=== PATIENT | female | born 1960 | race Native Hawaiian/Other Pacific Islander ===

== ENCOUNTER 2019-05-21 20:03 | Observation (INO) | payer OTHER ==
[~2019-05-21] VITALS: Ht 162.6 cm; Wt 90.0 kg
[2019-05-21 20:36] LABS: BASOPHILS ABSOLUTE AUTO 0.05 K/mm3 (0.00-0.23); BASOPHILS PERCENT AUTO 1 % (0-2); EOSINOPHILS ABSOLUTE AUTO 0.36 K/mm3 (0.00-0.68); EOSINOPHILS PERCENT AUTO 5 % (0-6); Hematocrit 41.4 % (33.0-51.0); IMMATURE GRAN ABSOLUTE AUTO 0.01 K/mm3 (0.00-0.10); IMMATURE GRAN PERCENT AUTO 0 % (0-1); LYMPHOCYTES ABSOLUTE AUTO 1.65 K/mm3 (0.84-5.20); LYMPHOCYTES PERCENT AUTO 25 % (21-46); MONOCYTES ABSOLUTE AUTO 0.42 K/mm3 (0.16-1.47); MONOCYTES PERCENT AUTO 6 % (4-13); Mean Corpuscular HGB 28.3 pg (26.0-34.0); Mean Corpuscular HGB Conc 31.4 g/dL (31.5-36.5); Mean Corpuscular Volume 90 fL (80-100); Mean Platelet Volume 9.1 fL (9.1-12.4); NEUTROPHILS ABSOLUTE AUTO 4.19 K/mm3 (1.96-9.15); NEUTROPHILS PERCENT AUTO 63 % (41-73); Platelet Count 326 K/mm3 (150-400); RDW Standard Deviation 49.6 fL (35.1-46.3); Red Blood Cell Count 4.59 M/mm3 (3.80-5.20); White Blood Cell Count 6.68 K/mm3 (4.00-11.30)
[2019-05-21 20:56] LABS: Alanine Aminotransfer (ALT/SGP 66 U/L (12-78); Albumin, Blood 3.6 g/dL (3.4-5.0); Albumin/Globulin Ratio 0.9 (0.8-1.8); Alk Phos 292 U/L (50-136); Anion Gap 6 mmol/L (6-16); Aspartate Aminotrans (AST/SGOT 49 U/L (12-37); Bilirubin, Total 0.2 mg/dL (0.1-1.0); Blood Urea Nitrogen 17 mg/dL (8-24); Bun/Creatinine Ratio 22.3 (12.0-20.0); CO2, Blood 23 mmol/L (21-32); Chloride, Blood 112 mmol/L (98-108); Creatinine, Blood 0.76 mg/dL (0.40-1.00); Globulin, Blood 4.2 g/dL (2.2-4.0); Glomerular Filtration Rate >60 (60-); Glucose, Blood 112 mg/dL (70-99); Potassium, Blood 3.9 mmol/L (3.5-5.5); Sodium, Blood 141 mmol/L (136-145); Total Protein, Blood 7.8 g/dL (6.4-8.2); Troponin I <0.015 ng/mL (0.000-0.040)
[2019-05-21] MEDS ORDERED: Protonix40 MG PO (23:55)
[2019-05-21] MEDS ORDERED: NITR.4SL SL (23:55)
[2019-05-21] MEDS ORDERED: Isosorbide Dini30 MG PO (23:55)
[2019-05-21] MEDS ORDERED: Prinivil5 MG PO (23:56)
[2019-05-21] MEDS ORDERED: ATOR40TA PO (23:56)
[2019-05-21] MEDS ORDERED: METOPROLOL SUCC25 MG PO (23:56)
[2019-05-21] MEDS ORDERED: Spironolactone25 MG PO (23:56)
--- NOTE | 2019-05-22 00:50 | NUR ---
REPORT RECIEVED FROM WELFARE VISITOR AT 0045 AND AWAITING PT T/F TO ROOM 344.
[2019-05-22] MEDS ORDERED: ASPI81CH PO (04:08)
--- NOTE | 2019-05-22 04:43 | NUR ---
T/F AND SUMMARY: PT T/F TO ROOM 344 AT 0100 VIA W/C. SHE USED TOILET INDEPENDENTLY, WAS OBSERVED STABLE ON FEET AND T/F'D SELF TO BED. PT IS A/OX4, WAS ORIENTED TO ROOM AND CALL SYSTEM AND IS ABLE TO SPECIFY NEEDS. SHE'S DENIED CP, NAUSEA, SOB, DYSPNEA, AND ALL OTHER S/S CARDIAC DISTRESS SINCE ARRIVAL TO FLOOR. SHE IS AWARE TO ALERT STAFF IF SHE BECOMES SYMPTOMATIC. PT PLACED ON TELEMETRY AND IS S.AJAY/NSR AND 50'S-60'S BPM. SHE ADMITTED THAT CP PRIOR TO ADMISSION WAS SHARP TO L.RIBS/CHEST, RADIATED TO STERNUM AND LASTED APPROX 1 MINUTE THEN RESOLVED SPONTANEOUSLY. SHE HAD NO ACCOMPANYING SYMPTOMS AND HASN'T EXPERIENCED ANY OF THIS SINCE HOME. PT HAD PA W/STENT PLACEMENT IN 2007 AND HAS SCAR TO L.LATERAL CW FROM PM/DEFIB PLACEMENT IN JANUARY 2019. SHE HAS NO OTHER SKIN ISSUES. SHE'S DENIED DIZZINESS/LIGHTHEADEDNESS BUT AGREED TO CALL STAFF IF THIS DEVELOPS. IV TO R.W IS SL. SCD'S INTACT. PT TOOK HOME MEDS PRIOR TO ARRIVAL TO ER SO THEY WEREN'T REQUIRED THIS SHIFT. NO ACUTE CHANGES, VSS/AFEBRILE. PT WILL NEED PCP AND FIRE PREVENTION CAPTAIN D/T RECENTLY MOVING TO AREA, WILL ENSURE DAY STAFF ARE AWARE. THOMAS AND REPORT TO DAY RN.
--- NOTE | 2019-05-22 11:33 | NUR ---
DISCHARGE DISCHARGE INSTRUCTIONS, MEDICATION LIST AND FOLLOW UP APPOINTMENT REVIEWED WITH PT. QUESTIONS/CONCERNS ANSWERED. PT VERBALLY INDICATED UNDERSTANDING OF ALL INSTRUCTIONS RECEIVED. TELE BOX REMOVED AND RETURNED TO PCU. ESCORTED OUT BY RN.
== END 2019-05-22 11:24 | disposition home or self-care (01) ==
LOC: ER 20:03 → MEDS 20:04 → ENPENDDIS 05-22 10:11 → MEDS 05-22 11:24
PROVIDERS: Physician Assistant; ADMIT Hospitalist
DX: R07.89 Other chest pain (principal); I25.10 Atherosclerotic heart disease of native coronary artery without angina pectoris; I11.0 Hypertensive heart disease with heart failure; I50.22 Chronic systolic (congestive) heart failure; K21.9 Gastro-esophageal reflux disease without esophagitis; E78.5 Hyperlipidemia, unspecified; E66.01 Morbid (severe) obesity due to excess calories; Z68.34 Body mass index [BMI] 34.0-34.9, adult; Z88.5 Allergy status to narcotic agent; Z88.8 Allergy status to other drugs, medicaments and biological substances; Z79.899 Other long term (current) drug therapy; Z95.0 Presence of cardiac pacemaker; Z79.82 Long term (current) use of aspirin
CPT/HCPCS: 36415; 71046; 80053; 83690; 84484; 85025; 93005; 93010; 99285-25; G0378

== ENCOUNTER 2019-10-18 21:03 | Emergency (ER) | payer OTHER ==
[~2019-10-18] VITALS: Ht 162.6 cm; Wt 85.7 kg
[~2019-10-18 21:03] MED LIST: ASPI81CH PO; ATOR40TA PO; Isosorbide Dini30 MG PO; METOPROLOL SUCC25 MG PO; NITR.4SL SL; Prinivil5 MG PO; Protonix40 MG PO; Spironolactone25 MG PO
[2019-10-18 22:18] LABS: BASOPHILS ABSOLUTE AUTO 0.05 K/mm3 (0.00-0.23); BASOPHILS PERCENT AUTO 1 % (0-2); EOSINOPHILS ABSOLUTE AUTO 0.24 K/mm3 (0.00-0.68); EOSINOPHILS PERCENT AUTO 3 % (0-6); Hematocrit 40.8 % (33.0-51.0); Hemoglobin 13.1 g/dL (11.5-16.0); IMMATURE GRAN ABSOLUTE AUTO 0.01 K/mm3 (0.00-0.10); IMMATURE GRAN PERCENT AUTO 0 % (0-1); LYMPHOCYTES ABSOLUTE AUTO 1.95 K/mm3 (0.84-5.20); LYMPHOCYTES PERCENT AUTO 27 % (21-46); MONOCYTES ABSOLUTE AUTO 0.65 K/mm3 (0.16-1.47); MONOCYTES PERCENT AUTO 9 % (4-13); Mean Corpuscular HGB 28.5 pg (26.0-34.0); Mean Corpuscular HGB Conc 32.1 g/dL (31.5-36.5); Mean Corpuscular Volume 89 fL (80-100); Mean Platelet Volume 9.4 fL (9.1-12.4); NEUTROPHILS ABSOLUTE AUTO 4.46 K/mm3 (1.96-9.15); NEUTROPHILS PERCENT AUTO 61 % (41-73); Platelet Count 329 K/mm3 (150-400); RDW Coefficient Variation 15.4 % (11.7-14.2); RDW Standard Deviation 50.4 fL (35.1-46.3); White Blood Cell Count 7.36 K/mm3 (4.00-11.30)
[2019-10-18 22:40] LABS: Alanine Aminotransfer (ALT/SGP 367 U/L (12-78); Albumin, Blood 3.6 g/dL (3.4-5.0); Albumin/Globulin Ratio 0.8 (0.8-1.8); Alk Phos 335 U/L (50-136); Anion Gap 5 mmol/L (6-16); Aspartate Aminotrans (AST/SGOT 248 U/L (12-37); Bilirubin, Total 0.3 mg/dL (0.1-1.0); Blood Urea Nitrogen 22 mg/dL (8-24); Bun/Creatinine Ratio 27.1 (12.0-20.0); CO2, Blood 26 mmol/L (21-32); Calcium, Blood 8.8 mg/dL (8.5-10.1); Chloride, Blood 112 mmol/L (98-108); Creatinine, Blood 0.81 mg/dL (0.40-1.00); Globulin, Blood 4.7 g/dL (2.2-4.0); Glomerular Filtration Rate >60 (60-); Glucose, Blood 92 mg/dL (70-99); Potassium, Blood 4.1 mmol/L (3.5-5.5); Sodium, Blood 143 mmol/L (136-145); Total Protein, Blood 8.3 g/dL (6.4-8.2); Troponin I <0.015 ng/mL (0.000-0.040)
== END 2019-10-19 03:27 | disposition home or self-care (01) ==
LOC: ER 21:03
PROVIDERS: Physician Assistant
DX: R07.89 Other chest pain (principal); I25.2 Old myocardial infarction; I11.0 Hypertensive heart disease with heart failure; I50.22 Chronic systolic (congestive) heart failure; F17.210 Nicotine dependence, cigarettes, uncomplicated; Z79.899 Other long term (current) drug therapy
CPT/HCPCS: 36415; 71046; 80053; 84484; 85025; 93005; 93010; 99284-25

== ENCOUNTER 2020-05-06 09:20 | Emergency (ER) | payer OTHER ==
[~2020-05-06] VITALS: Ht 160 cm; Wt 91.2 kg
[2020-05-06 10:08] LABS: BASOPHILS ABSOLUTE AUTO 0.03 K/mm3 (0.00-0.23); BASOPHILS PERCENT AUTO 1 % (0-2); EOSINOPHILS PERCENT AUTO 3 % (0-6); Hematocrit 39.7 % (33.0-51.0); Hemoglobin 12.5 g/dL (11.5-16.0); IMMATURE GRAN ABSOLUTE AUTO 0.01 K/mm3 (0.00-0.10); IMMATURE GRAN PERCENT AUTO 0 % (0-1); LYMPHOCYTES PERCENT AUTO 27 % (21-46); MONOCYTES ABSOLUTE AUTO 0.41 K/mm3 (0.16-1.47); MONOCYTES PERCENT AUTO 7 % (4-13); Mean Corpuscular HGB 27.8 pg (26.0-34.0); Mean Corpuscular HGB Conc 31.5 g/dL (31.5-36.5); Mean Corpuscular Volume 88 fL (80-100); Mean Platelet Volume 9.4 fL (9.1-12.4); NEUTROPHILS PERCENT AUTO 62 % (41-73); Platelet Count 276 K/mm3 (150-400); RDW Coefficient Variation 15.8 % (11.7-14.2); RDW Standard Deviation 51.6 fL (35.1-46.3); White Blood Cell Count 5.85 K/mm3 (4.00-11.30)
[2020-05-06] MEDS ORDERED: PANT40 PO (10:28)
[2020-05-06 10:35] LABS: Alanine Aminotransfer (ALT/SGP 192 U/L (12-78); Albumin, Blood 3.3 g/dL (3.4-5.0); Albumin/Globulin Ratio 0.7 (0.8-1.8); Alk Phos 238 U/L (50-136); Anion Gap 6 mmol/L (6-16); Aspartate Aminotrans (AST/SGOT 127 U/L (12-37); Bilirubin, Total 0.4 mg/dL (0.1-1.0); Blood Urea Nitrogen 14 mg/dL (8-24); Bun/Creatinine Ratio 20.4 (12.0-20.0); CO2, Blood 23 mmol/L (21-32); Calcium, Blood 9.2 mg/dL (8.5-10.1); Chloride, Blood 114 mmol/L (98-108); Creatinine, Blood 0.69 mg/dL (0.40-1.00); Globulin, Blood 4.5 g/dL (2.2-4.0); Glomerular Filtration Rate >60 (60-); Glucose, Blood 82 mg/dL (70-99); Potassium, Blood 4.3 mmol/L (3.5-5.5); Sodium, Blood 143 mmol/L (136-145); Total Protein, Blood 7.8 g/dL (6.4-8.2)
[2020-05-06 10:37] LABS: Troponin I <0.015 ng/mL (0.000-0.040)
== END 2020-05-06 11:21 | disposition home or self-care (01) ==
LOC: ER 09:20
PROVIDERS: Emergency Medicine
DX: S20.212A Contusion of left front wall of thorax, initial encounter (principal); S20.211A Contusion of right front wall of thorax, initial encounter; R07.9 Chest pain, unspecified; Z88.4 Allergy status to anesthetic agent; Z88.1 Allergy status to other antibiotic agents; Z79.899 Other long term (current) drug therapy; Z79.82 Long term (current) use of aspirin; V89.2XXA Person injured in unspecified motor-vehicle accident, traffic, initial encounter; Y92.410 Unspecified street and highway as the place of occurrence of the external cause
CPT/HCPCS: 36415; 71046; 80053; 84484; 85025; 93005; 93010; 99285-25

== ENCOUNTER 2020-12-18 09:44 | Emergency (ER) | payer OTHER ==
[~2020-12-18] VITALS: Ht 162.6 cm; Wt 94.8 kg
[~2020-12-18 09:44] MED LIST changes: +PANT40 PO
[2020-12-18] MEDS ORDERED: PRED20 PO (10:14)
== END 2020-12-18 10:26 | disposition home or self-care (01) ==
LOC: ER 09:44
DX: L29.9 Pruritus, unspecified (principal); T45.1X5A Adverse effect of antineoplastic and immunosuppressive drugs, initial encounter; I25.2 Old myocardial infarction; F17.210 Nicotine dependence, cigarettes, uncomplicated; Z79.52 Long term (current) use of systemic steroids; Z88.4 Allergy status to anesthetic agent; Z88.1 Allergy status to other antibiotic agents; Z88.8 Allergy status to other drugs, medicaments and biological substances; Z79.899 Other long term (current) drug therapy
CPT/HCPCS: 99282; J7512

== ENCOUNTER 2021-02-14 21:17 | Emergency (ER) | payer OTHER ==
[~2021-02-14] VITALS: Ht 162.6 cm; Wt 93.0 kg
[~2021-02-14 21:17] MED LIST changes: +PRED20 PO
== END 2021-02-14 23:15 | disposition home or self-care (01) ==
LOC: ER 21:17
DX: J06.9 Acute upper respiratory infection, unspecified (principal); F17.210 Nicotine dependence, cigarettes, uncomplicated; Z88.1 Allergy status to other antibiotic agents; Z88.4 Allergy status to anesthetic agent; Z79.899 Other long term (current) drug therapy; Z20.822 Contact with and (suspected) exposure to COVID-19
CPT/HCPCS: 71045; 99283-25

== ENCOUNTER → 2021-09-16 | Outpatient (CLI) | payer OTHER ==
[~2021-09-16] MED LIST changes: +PRED5 PO
[2021-09-16 12:49] LABS: BASOPHILS ABSOLUTE AUTO 0.05 K/mm3 (0.00-0.23); BASOPHILS PERCENT AUTO 1 % (0-2); EOSINOPHILS ABSOLUTE AUTO 0.46 K/mm3 (0.00-0.68); EOSINOPHILS PERCENT AUTO 5 % (0-6); Hematocrit 41.8 % (33.0-51.0); Hemoglobin 13.5 g/dL (11.5-16.0); IMMATURE GRAN ABSOLUTE AUTO 0.03 K/mm3 (0.00-0.10); IMMATURE GRAN PERCENT AUTO 0 % (0-1); LYMPHOCYTES ABSOLUTE AUTO 2.64 K/mm3 (0.84-5.20); LYMPHOCYTES PERCENT AUTO 29 % (21-46); MONOCYTES ABSOLUTE AUTO 0.54 K/mm3 (0.16-1.47); MONOCYTES PERCENT AUTO 6 % (4-13); Mean Corpuscular HGB 29.7 pg (26.0-34.0); Mean Corpuscular HGB Conc 32.3 g/dL (31.5-36.5); Mean Corpuscular Volume 92 fL (80-100); Mean Platelet Volume 9.5 fL (9.1-12.4); NEUTROPHILS ABSOLUTE AUTO 5.51 K/mm3 (1.96-9.15); NEUTROPHILS PERCENT AUTO 60 % (41-73); Platelet Count 308 K/mm3 (150-400); RDW Coefficient Variation 15.6 % (11.7-14.2); RDW Standard Deviation 52.1 fL (35.1-46.3); Red Blood Cell Count 4.54 M/mm3 (3.80-5.20); White Blood Cell Count 9.23 K/mm3 (4.00-11.30)
[2021-09-16 13:00] LABS: Alanine Aminotransfer (ALT/SGP 21 U/L (12-78); Albumin, Blood 3.6 g/dL (3.4-5.0); Albumin/Globulin Ratio 1.2 (0.8-1.8); Alk Phos 121 U/L (40-126); Anion Gap 12 mmol/L (6-16); Aspartate Aminotrans (AST/SGOT 17 U/L (12-37); Bilirubin, Total 0.3 mg/dL (0.1-1.0); Blood Urea Nitrogen 14 mg/dL (8-24); Bun/Creatinine Ratio 17.7 (12.0-20.0); CO2, Blood 25 mmol/L (21-32); Calcium, Blood 9.1 mg/dL (8.5-10.1); Chloride, Blood 107 mmol/L (98-108); Creatinine, Blood 0.79 mg/dL (0.40-1.00); Globulin, Blood 3.1 g/dL (2.2-4.0); Glomerular Filtration Rate >60 (60-); Glucose, Blood 85 mg/dL (70-99); Potassium, Blood 4.3 mmol/L (3.5-5.5); Sodium, Blood 144 mmol/L (136-145); Total Protein, Blood 6.7 g/dL (6.4-8.2)
[2021-09-16 13:41] LABS: CPK Creatine Kinase 71 U/L (26-193)
[2021-09-16 13:53] LABS: Creatine Kinase MB <1.0 ng/mL (0.0-3.6); Creatine Kinase MB Index Unable to Calculate (0.0-4.0)
== END | disposition home or self-care (01) ==
LOC: LAB SHORT 12:39 → LAB 12:39
PROVIDERS: Physician Assistant
DX: R20.2 Paresthesia of skin (principal)
CPT/HCPCS: 80053; 82550; 82553; 82607; 82746; 85025

== ENCOUNTER 2021-09-17 12:08 | Emergency (ER) | payer OTHER ==
[~2021-09-17] VITALS: Ht 162.6 cm; Wt 93.0 kg
== END 2021-09-17 14:07 | disposition left against medical advice (07) ==
LOC: ER 12:08
DX: R20.2 Paresthesia of skin (principal); Z53.21 Procedure and treatment not carried out due to patient leaving prior to being seen by health care provider
CPT/HCPCS: 99281

== ENCOUNTER → 2022-09-16 | Outpatient (CLI) | payer OTHER ==
[~2022-09-16] MED LIST changes: -ATOR40TA PO; +ATOR80 PO; +Acerola C500 MG PO; +BUDESONIDE EC3 M5 PO; +FERROUS SULFAT325 M3 PO; +ONDA4 PO; +URSO300 PO; +Vitamin D1000 UNI1 PO; +ZOLOFT50 MG PO; +ZOLPIDEM TART12.5 MG PO
[2022-09-22 21:22] LABS: Adenovirus F 40/41 Not Detected (NOT DETECT); Astrovirus Not Detected (NOT DETECT); Campylobacter Sp Not Detected (NOT DETECT); Cryptosporidium Not Detected (NOT DETECT); Cyclospora Cayetanensis Not Detected (NOT DETECT); E. Coli O157 Not Detected (NOT DETECT); Entamoeba Histolytica Not Detected (NOT DETECT); Enteroaggregative E. coli-EAEC Not Detected (NOT DETECT); Enteropathogenic E. coli-EPEC Not Detected (NOT DETECT); Enterotoxigenic E. coli-ETEC Not Detected (NOT DETECT); Giardia Lamblia Not Detected (NOT DETECT); Norovirus GI/GII Not Detected (NOT DETECT); Plesiomonas Shigelloides Not Detected (NOT DETECT); Rotavirus A Not Detected (NOT DETECT); Salmonella Sp Not Detected (NOT DETECT); Sapovirus Not Detected (NOT DETECT); Shiga Toxin-prod E. coli-STEC Not Detected (NOT DETECT); Shigella/Enteroin E. coli-EIEC Not Detected (NOT DETECT); Vibrio Cholerae Not Detected (NOT DETECT); Vibrio Sp Not Detected (NOT DETECT); Yersinia Enterocolitica Not Detected (NOT DETECT)
== END | disposition home or self-care (01) ==
LOC: LAB 11:00 → LAB SHORT 11:00
PROVIDERS: Student in an Organized Health Care Education/Training Program
DX: R11.0 Nausea (principal); R19.7 Diarrhea, unspecified
CPT/HCPCS: 87507

== ENCOUNTER 2023-04-19 14:07 | Emergency (ER) | payer OTHER ==
[~2023-04-19] VITALS: Ht 162.6 cm; Wt 95.7 kg
[2023-04-19 15:40] LABS: BASOPHILS ABSOLUTE AUTO 0.04 K/mm3 (0.00-0.23); BASOPHILS PERCENT AUTO 0 % (0-2); EOSINOPHILS ABSOLUTE AUTO 0.06 K/mm3 (0.00-0.68); EOSINOPHILS PERCENT AUTO 1 % (0-6); Hematocrit 43.8 % (33.0-51.0); Hemoglobin 14.2 g/dL (11.5-16.0); IMMATURE GRAN ABSOLUTE AUTO 0.02 K/mm3 (0.00-0.10); IMMATURE GRAN PERCENT AUTO 0 % (0-1); LYMPHOCYTES ABSOLUTE AUTO 1.47 K/mm3 (0.84-5.20); LYMPHOCYTES PERCENT AUTO 16 % (21-46); MONOCYTES ABSOLUTE AUTO 0.43 K/mm3 (0.16-1.47); MONOCYTES PERCENT AUTO 5 % (4-13); Mean Corpuscular HGB 29.6 pg (26.0-34.0); Mean Corpuscular HGB Conc 32.4 g/dL (31.5-36.5); Mean Corpuscular Volume 91 fL (80-100); Mean Platelet Volume 9.8 fL (9.1-12.4); NEUTROPHILS ABSOLUTE AUTO 6.95 K/mm3 (1.96-9.15); NEUTROPHILS PERCENT AUTO 78 % (41-73); Platelet Count 299 K/mm3 (150-400); RDW Coefficient Variation 14.5 % (11.7-14.2); RDW Standard Deviation 48.7 fL (35.1-46.3); White Blood Cell Count 8.97 K/mm3 (4.00-11.30)
[2023-04-19 16:11] LABS: Albumin, Blood 3.8 g/dL (3.4-5.0); Albumin/Globulin Ratio 1.1 (0.8-1.8); Bilirubin, Total 0.3 mg/dL (0.1-1.0); Bun/Creatinine Ratio 19.1 (12.0-20.0); Calcium, Blood 9.5 mg/dL (8.5-10.1); Creatinine, Blood 0.89 mg/dL (0.40-1.00); Globulin, Blood 3.5 g/dL (2.2-4.0); Potassium, Blood 4.6 mmol/L (3.5-5.5); Total Protein, Blood 7.3 g/dL (6.4-8.2)
[2023-04-19 16:43] LABS: Source, Urine Clean Catch
[2023-04-19 16:52] LABS: Appearance, Urine Clear (Clear); Bilirubin, Urine Neg (Neg); Blood, Urine Neg (Neg); Glucose Qualitative, Urine 2+ (Neg); Ketones, Urine Neg (Neg); Leukocyte Esterase, Urine Neg (Neg); Nitrite, Urine Neg (Neg); Protein, Urine Neg (Neg); Urobilinogen, Urine NORM (Normal)
[2023-04-19 17:10] LABS: Color, Urine Pale Yellow (P-Yellow)
[2023-04-19 18:56] VITALS: BP 116/80
== END 2023-04-19 18:56 | disposition home or self-care (01) ==
LOC: ER 14:07
PROVIDERS: Student in an Organized Health Care Education/Training Program
DX: R53.1 Weakness (principal); I25.10 Atherosclerotic heart disease of native coronary artery without angina pectoris; I25.2 Old myocardial infarction; I11.0 Hypertensive heart disease with heart failure; I50.22 Chronic systolic (congestive) heart failure; Z88.1 Allergy status to other antibiotic agents; Z88.8 Allergy status to other drugs, medicaments and biological substances; Z79.899 Other long term (current) drug therapy; Z79.82 Long term (current) use of aspirin; Z87.891 Personal history of nicotine dependence
CPT/HCPCS: 80053; 81003; 85025; 93005; 93010; 99284-25

== ENCOUNTER 2023-08-20 11:14 | Emergency (ER) | payer OTHER ==
[~2023-08-20] VITALS: Ht 162.6 cm; Wt 90.7 kg
[~2023-08-20 11:14] MED LIST changes: +Chantix1 MG PO; +ENTRESTO 49 MG1 EAC7 PO; +JARDIANCE10 MG PO
[2023-08-20 11:49] LABS: BASOPHILS ABSOLUTE AUTO 0.05 K/mm3 (0.00-0.23); BASOPHILS PERCENT AUTO 1 % (0-2); EOSINOPHILS ABSOLUTE AUTO 0.12 K/mm3 (0.00-0.68); EOSINOPHILS PERCENT AUTO 2 % (0-6); Hematocrit 45.7 % (33.0-51.0); Hemoglobin 14.7 g/dL (11.5-16.0); IMMATURE GRAN ABSOLUTE AUTO 0.01 K/mm3 (0.00-0.10); IMMATURE GRAN PERCENT AUTO 0 % (0-1); LYMPHOCYTES ABSOLUTE AUTO 1.65 K/mm3 (0.84-5.20); LYMPHOCYTES PERCENT AUTO 24 % (21-46); MONOCYTES ABSOLUTE AUTO 0.37 K/mm3 (0.16-1.47); MONOCYTES PERCENT AUTO 5 % (4-13); Mean Corpuscular HGB 30.1 pg (26.0-34.0); Mean Corpuscular HGB Conc 32.2 g/dL (31.5-36.5); Mean Corpuscular Volume 94 fL (80-100); Mean Platelet Volume 9.4 fL (9.1-12.4); NEUTROPHILS ABSOLUTE AUTO 4.73 K/mm3 (1.96-9.15); NEUTROPHILS PERCENT AUTO 68 % (41-73); Platelet Count 305 K/mm3 (150-400); RDW Coefficient Variation 14.6 % (11.7-14.2); RDW Standard Deviation 50.6 fL (35.1-46.3); Red Blood Cell Count 4.89 M/mm3 (3.80-5.20); White Blood Cell Count 6.93 K/mm3 (4.00-11.30)
[2023-08-20 12:09] LABS: Albumin, Blood 3.6 g/dL (3.4-5.0); Albumin/Globulin Ratio 0.9 (0.8-1.8); Bilirubin, Total 0.4 mg/dL (0.1-1.0); Bun/Creatinine Ratio 22.7 (12.0-20.0); Calcium, Blood 9.4 mg/dL (8.5-10.1); Creatinine, Blood 0.97 mg/dL (0.40-1.00); Potassium, Blood 4.3 mmol/L (3.5-5.5); Total Protein, Blood 7.6 g/dL (6.4-8.2)
[2023-08-20 16:20] VITALS: BP 127/81
== END 2023-08-20 16:21 | disposition home or self-care (01) ==
LOC: ER 11:14
PROVIDERS: Emergency Medicine
DX: R07.89 Other chest pain (principal); I11.0 Hypertensive heart disease with heart failure; I50.22 Chronic systolic (congestive) heart failure; I25.10 Atherosclerotic heart disease of native coronary artery without angina pectoris; I25.2 Old myocardial infarction; Z86.74 Personal history of sudden cardiac arrest; Z87.891 Personal history of nicotine dependence; Z95.810 Presence of automatic (implantable) cardiac defibrillator; Z79.82 Long term (current) use of aspirin; Z79.899 Other long term (current) drug therapy; Z88.1 Allergy status to other antibiotic agents; Z88.8 Allergy status to other drugs, medicaments and biological substances
CPT/HCPCS: 71046; 80053; 83880; 84484; 85025; 93005; 93010; 99285-25

== ENCOUNTER → 2024-06-29 | Outpatient (CLI) | payer OTHER ==
[2024-06-29 15:44] LABS: BASOPHILS ABSOLUTE AUTO 0.05 K/mm3 (0.00-0.23); BASOPHILS PERCENT AUTO 1 % (0-2); EOSINOPHILS ABSOLUTE AUTO 0.06 K/mm3 (0.00-0.68); EOSINOPHILS PERCENT AUTO 1 % (0-6); Hematocrit 44.9 % (33.0-51.0); Hemoglobin 14.3 g/dL (11.5-16.0); IMMATURE GRAN ABSOLUTE AUTO 0.02 K/mm3 (0.00-0.10); IMMATURE GRAN PERCENT AUTO 0 % (0-1); LYMPHOCYTES ABSOLUTE AUTO 1.44 K/mm3 (0.84-5.20); LYMPHOCYTES PERCENT AUTO 14 % (21-46); MONOCYTES ABSOLUTE AUTO 0.52 K/mm3 (0.16-1.47); MONOCYTES PERCENT AUTO 5 % (4-13); Mean Corpuscular HGB 29.7 pg (26.0-34.0); Mean Corpuscular HGB Conc 31.8 g/dL (31.5-36.5); Mean Corpuscular Volume 93 fL (80-100); Mean Platelet Volume 9.3 fL (9.1-12.4); NEUTROPHILS PERCENT AUTO 80 % (41-73); Platelet Count 297 K/mm3 (150-400); RDW Coefficient Variation 14.6 % (11.7-14.2); RDW Standard Deviation 50.4 fL (35.1-46.3); Red Blood Cell Count 4.81 M/mm3 (3.80-5.20); White Blood Cell Count 10.59 K/mm3 (4.00-11.30)
[2024-06-29 16:08] LABS: Albumin, Blood 3.6 g/dL (3.4-5.0); Albumin/Globulin Ratio 0.9 (0.8-1.8); Bilirubin, Total 0.3 mg/dL (0.1-1.0); Bun/Creatinine Ratio 18.8 (12.0-20.0); Calcium, Blood 9.3 mg/dL (8.5-10.1); Creatinine, Blood 1.54 mg/dL (0.40-1.00); Globulin, Blood 4.1 g/dL (2.2-4.0); Potassium, Blood 4.6 mmol/L (3.5-5.5); Total Protein, Blood 7.7 g/dL (6.4-8.2)
== END ==
LOC: LAB SHORT 15:39
PROVIDERS: Physician Assistant
DX: R07.9 Chest pain, unspecified (principal)
CPT/HCPCS: 80053; 84484; 85025

== ENCOUNTER 2024-09-17 14:57 | Emergency (ER) | payer OTHER ==
[~2024-09-17] VITALS: Ht 162.6 cm; Wt 106.6 kg
[2024-09-17 15:31] LABS: BASOPHILS ABSOLUTE AUTO 0.04 K/mm3 (0.00-0.23); BASOPHILS PERCENT AUTO 0 % (0-2); EOSINOPHILS ABSOLUTE AUTO 0.11 K/mm3 (0.00-0.68); EOSINOPHILS PERCENT AUTO 1 % (0-6); Hematocrit 43.7 % (33.0-51.0); Hemoglobin 14.1 g/dL (11.5-16.0); IMMATURE GRAN ABSOLUTE AUTO 0.04 K/mm3 (0.00-0.10); IMMATURE GRAN PERCENT AUTO 0 % (0-1); LYMPHOCYTES ABSOLUTE AUTO 1.47 K/mm3 (0.84-5.20); LYMPHOCYTES PERCENT AUTO 14 % (21-46); MONOCYTES ABSOLUTE AUTO 0.55 K/mm3 (0.16-1.47); MONOCYTES PERCENT AUTO 5 % (4-13); Mean Corpuscular HGB 29.8 pg (26.0-34.0); Mean Corpuscular HGB Conc 32.3 g/dL (31.5-36.5); Mean Corpuscular Volume 92 fL (80-100); Mean Platelet Volume 9.2 fL (9.1-12.4); NEUTROPHILS ABSOLUTE AUTO 8.54 K/mm3 (1.96-9.15); NEUTROPHILS PERCENT AUTO 79 % (41-73); Platelet Count 288 K/mm3 (150-400); RDW Coefficient Variation 15.1 % (11.7-14.2); RDW Standard Deviation 51.8 fL (35.1-46.3); Red Blood Cell Count 4.73 M/mm3 (3.80-5.20); White Blood Cell Count 10.75 K/mm3 (4.00-11.30)
[2024-09-17 15:59] LABS: Albumin, Blood 3.5 g/dL (3.4-5.0); Albumin/Globulin Ratio 0.9 (0.8-1.8); Bilirubin, Total 0.4 mg/dL (0.1-1.0); Bun/Creatinine Ratio 17.2 (12.0-20.0); Calcium, Blood 9.2 mg/dL (8.5-10.1); Creatinine, Blood 1.22 mg/dL (0.40-1.00); Globulin, Blood 3.9 g/dL (2.2-4.0); Potassium, Blood 4.5 mmol/L (3.5-5.5); Total Protein, Blood 7.4 g/dL (6.4-8.2)
[2024-09-17 16:27] VITALS: BP 109/55
== END 2024-09-17 17:33 | disposition home or self-care (01) ==
LOC: ER 14:57
PROVIDERS: Student in an Organized Health Care Education/Training Program
DX: R07.89 Other chest pain (principal); I50.22 Chronic systolic (congestive) heart failure; I25.2 Old myocardial infarction; F17.210 Nicotine dependence, cigarettes, uncomplicated; Z95.5 Presence of coronary angioplasty implant and graft; Z95.810 Presence of automatic (implantable) cardiac defibrillator; Z88.5 Allergy status to narcotic agent; Z88.1 Allergy status to other antibiotic agents; Z88.8 Allergy status to other drugs, medicaments and biological substances; Z79.82 Long term (current) use of aspirin; Z79.84 Long term (current) use of oral hypoglycemic drugs; Z79.899 Other long term (current) drug therapy
CPT/HCPCS: 71046; 80053; 84484; 85025; 93005; 93010; 99285-25

== ENCOUNTER 2025-02-13 15:14 | Inpatient (IN) | payer OTHER ==
[~2025-02-13] VITALS: Ht 162.6 cm; Wt 95.7 kg
[~2025-02-13 15:14] MED LIST changes: +METO100ER PO; -METOPROLOL SUCC25 MG PO
[2025-02-13 15:49] LABS: BASOPHILS ABSOLUTE AUTO 0.07 K/mm3 (0.00-0.23); BASOPHILS PERCENT AUTO 1 % (0-2); EOSINOPHILS ABSOLUTE AUTO 0.08 K/mm3 (0.00-0.68); EOSINOPHILS PERCENT AUTO 1 % (0-6); Hematocrit 44.1 % (33.0-51.0); Hemoglobin 14.5 g/dL (11.5-16.0); IMMATURE GRAN ABSOLUTE AUTO 0.04 K/mm3 (0.00-0.10); IMMATURE GRAN PERCENT AUTO 0 % (0-1); LYMPHOCYTES ABSOLUTE AUTO 1.26 K/mm3 (0.84-5.20); LYMPHOCYTES PERCENT AUTO 10 % (21-46); MONOCYTES ABSOLUTE AUTO 0.53 K/mm3 (0.16-1.47); MONOCYTES PERCENT AUTO 4 % (4-13); Mean Corpuscular HGB Conc 32.9 g/dL (31.5-36.5); Mean Corpuscular Volume 93 fL (80-100); NEUTROPHILS ABSOLUTE AUTO 11.31 K/mm3 (1.96-9.15); NEUTROPHILS PERCENT AUTO 85 % (41-73); NRBC ABSOLUTE 0.00 K/mm3 (0.00-0.02); NRBC Auto 0.0 /100 WBC (0.0-0.2); Platelet Count 290 K/mm3 (150-400); RDW Coefficient Variation 15.2 % (11.7-14.2); RDW Standard Deviation 52.1 fL (35.1-46.3)
[2025-02-13 16:22] LABS: Alanine Aminotransfer (ALT/SGP 16.0 U/L (12-78); Albumin, Blood 3.5 g/dL (3.4-5.0); Albumin/Globulin Ratio 0.9 (0.8-1.8); Anion Gap 8.0 mmol/L (3-11); Aspartate Aminotrans (AST/SGOT 19.0 U/L (12-37); Bilirubin, Total 0.6 mg/dL (0.1-1.0); Blood Urea Nitrogen 30.0 mg/dL (8-24); CO2, Blood 25.0 mmol/L (21-32); Calcium, Blood 9.1 mg/dL (8.5-10.1); Chloride, Blood 107.0 mmol/L (98-108); Creatinine, Blood 1.54 mg/dL (0.40-1.00); Globulin, Blood 3.8 g/dL (2.2-4.0); Glucose, Blood 96.0 mg/dL (70-99); Potassium, Blood 4.7 mmol/L (3.5-5.5); Sodium, Blood 135.0 mmol/L (136-145); Total Protein, Blood 7.3 g/dL (6.4-8.2)
[2025-02-13] MEDS ORDERED: Ondansetron HCl 2 MG / ML 2ML Vial IV ONE (16:40)
[2025-02-13 17:17] LABS: Source, Urine Clean Catch
[2025-02-13 17:27] LABS: Bilirubin, Urine Neg (Neg); Color, Urine Yellow (P-Yellow); Glucose Qualitative, Urine 2+ (Neg); Ketones, Urine Neg (Neg); Leukocyte Esterase, Urine 1+ (Neg); Protein, Urine 1+ (Neg); Specific Gravity, Urine 1.010 (1.003-1.022); Urobilinogen, Urine NORM (Normal)
[2025-02-13 17:43] LABS: Red Blood Cells, Urine 0-2 /hpf (0-2)
[2025-02-13 18:30] LABS: Prothrombin Time Results 12.4 Sec (9.7-11.5)
[2025-02-13] MEDS ORDERED: NS 1,000 ML IV SCH ×2 (18:35→20:15)
[2025-02-13] MEDS ORDERED: Ondansetron HCl 2 MG / ML 2ML Vial IV PRN (20:15)
[2025-02-13 20:43] LABS: Thyroid Stimulating Hormone 1.8 uIU/mL (0.360-4.800)
[2025-02-13 20:44] LABS: U Amphetamine Screen Not Detected; U Barbituate Screen Not Detected; U Benzodiazapine Screen Not Detected; U Buprenorphine Screen Not Detected; U Cannabinoids Screen Not Detected; U Cocaine Screen Not Detected; U Methadone Screen Not Detected; U Methamphetamine Screen Not Detected; U Opiates Screen Not Detected; U Oxycodone Screen Not Detected; U Phencyclidine Screen Not Detected
[2025-02-13] MEDS ORDERED: NS 250 ML IV ONE (21:00)
[2025-02-13 22:45] VITALS: BP 90/61
[2025-02-13] MEDS ORDERED: ENTRESTO 97 MG1 EACH PO (22:47)
[2025-02-13] MEDS ORDERED: WEGOVY0.25 MG/0. SC (22:51)
[2025-02-13] MEDS ORDERED: XARELTO20 MG PO (22:52)
[2025-02-13 23:00] VITALS: BP 66/48
[2025-02-13 23:30] VITALS: BP 96/67
[2025-02-13] MEDS ORDERED: Calcium Gluconate 10% 1,000 MG in NS 50 ML IV ONE (23:40)
[2025-02-13 23:45] VITALS: BP 98/85
[2025-02-14] VITALS (48 sets, daily range): BP systolic 74–113; BP diastolic 24–89
[2025-02-14] MEDS ORDERED: Heparin Sodium,Porcine 5,000 UNIT/0.5 ML SDV SC SCH
[2025-02-14] MEDS ORDERED: FentaNYL Citrate 50 MCG/ML 2 ML Injection IV ONE (01:55)
[2025-02-14 04:24] LABS: Hematocrit 41.2 % (33.0-51.0); Hemoglobin 13.3 g/dL (11.5-16.0); Mean Corpuscular HGB Conc 32.3 g/dL (31.5-36.5); Mean Corpuscular Volume 94 fL (80-100); NRBC ABSOLUTE 0.00 K/mm3 (0.00-0.02); NRBC Auto 0.0 /100 WBC (0.0-0.2); Platelet Count 252 K/mm3 (150-400); RDW Coefficient Variation 15.5 % (11.7-14.2); RDW Standard Deviation 53.6 fL (35.1-46.3)
[2025-02-14] MEDS ORDERED: FentaNYL Citrate 50 MCG/ML 2 ML Injection IV PRN (06:20)
--- NOTE | 2025-02-14 06:21 | NUR ---
SHIFT SUMMARY: PT ADMITTED LAST NIGHT FOR OBSERVATION DUE TO HYPOTENSION. PT CAME TO ED W/ C/O OF CHEST PAIN, R ARM PAIN, AND RLQ PAIN. PT DENIED CHEST PAIN AND R ARM PAIN ONCE IN ICU BUT CONTINUED TO ENDORSE RLQ PAIN. IMAGING TAKEN IN ED INDICATE PT HAS RIGHT OVARIAN MASS, SEE IMAGING. PT IS A&OX4, ABLE TO COMMUNICATE APPROPRIATELY, FOLLOW COMMANDS AND MAKE NEEDS KNOWN. PT TRANSFERS FROM ED GURNEY TO ICU BED INDEPENDENTLY, STAND-BY ASSIST DUE TO OCCASSIONAL DIZZINESS. PT SBP 80S-90S. HR 60S,SINUS, PACED. PT ON RA ON ARRIVAL, SATS>90%. PT DOES NOT USE O2 AT BASELINE. LUNGS CLEAR T/O, DIMINISHED AT BASES. PT PLACED ON 2L O2 VIA NC WHILE ASLEEP DUE TO SATS DIPPING INTO 80S. ABD SOFT TO PALPATION, W/PAIN TO RLQ. LAST BM 02/12/25 PER PT. PT USING BEDSIDE COMMODE TO VOID. PT HAS PIV TO RAC AND LHAND. INFUSING IS NS AT 125ML/HR [id number], PER EMAR ORDERS. THIS RN TO CONTINUE TO MONITOR AND REPORT ONCOMING RN.
[2025-02-14 06:54] LABS: Anion Gap 11.0 mmol/L (3-11); Blood Urea Nitrogen 35.0 mg/dL (8-24); CO2, Blood 21.0 mmol/L (21-32); Calcium, Blood 8.9 mg/dL (8.5-10.1); Chloride, Blood 107.0 mmol/L (98-108); Creatinine, Blood 1.91 mg/dL (0.40-1.00); Glucose, Blood 97.0 mg/dL (70-99); Potassium, Blood 4.8 mmol/L (3.5-5.5); Sodium, Blood 134.0 mmol/L (136-145)
[2025-02-15] VITALS (22 sets, daily range): BP systolic 75–110; BP diastolic 33–87
[2025-02-15] MEDS ORDERED: NS 1,000 ML IV ONE (06:30)
[2025-02-15] MEDS ORDERED: EZET10 PO (13:40)
[2025-02-15] MEDS ORDERED: FURO40 PO (13:40)
[2025-02-15] MEDS ORDERED: Isosorbide Mono30 MG PO (13:41)
[2025-02-15] MEDS ORDERED: Nicoderm Cq1 EAC1 TOP (13:49)
[2025-02-15 14:38] LABS: Anion Gap 8.0 mmol/L (3-11); Blood Urea Nitrogen 46.0 mg/dL (8-24); CO2, Blood 23.0 mmol/L (21-32); Calcium, Blood 8.9 mg/dL (8.5-10.1); Chloride, Blood 106.0 mmol/L (98-108); Creatinine, Blood 3.14 mg/dL (0.40-1.00); Glucose, Blood 88.0 mg/dL (70-99); Potassium, Blood 5.1 mmol/L (3.5-5.5); Sodium, Blood 132.0 mmol/L (136-145)
[2025-02-15] MEDS ORDERED: Furosemide 10 MG / ML 2ML Vial IV SCH (18:00)
[2025-02-16] VITALS (22 sets, daily range): BP systolic 70–122; BP diastolic 49–104
[2025-02-16 03:29] LABS: BASOPHILS ABSOLUTE AUTO 0.06 K/mm3 (0.00-0.23); BASOPHILS PERCENT AUTO 1 % (0-2); EOSINOPHILS ABSOLUTE AUTO 0.22 K/mm3 (0.00-0.68); EOSINOPHILS PERCENT AUTO 3 % (0-6); Hematocrit 38.5 % (33.0-51.0); Hemoglobin 12.0 g/dL (11.5-16.0); IMMATURE GRAN ABSOLUTE AUTO 0.02 K/mm3 (0.00-0.10); IMMATURE GRAN PERCENT AUTO 0 % (0-1); LYMPHOCYTES ABSOLUTE AUTO 1.59 K/mm3 (0.84-5.20); LYMPHOCYTES PERCENT AUTO 20 % (21-46); MONOCYTES ABSOLUTE AUTO 0.48 K/mm3 (0.16-1.47); MONOCYTES PERCENT AUTO 6 % (4-13); Mean Corpuscular HGB Conc 31.2 g/dL (31.5-36.5); Mean Corpuscular Volume 96 fL (80-100); NEUTROPHILS ABSOLUTE AUTO 5.51 K/mm3 (1.96-9.15); NEUTROPHILS PERCENT AUTO 70 % (41-73); NRBC ABSOLUTE 0.00 K/mm3 (0.00-0.02); NRBC Auto 0.0 /100 WBC (0.0-0.2); Platelet Count 250 K/mm3 (150-400); RDW Coefficient Variation 15.4 % (11.7-14.2); RDW Standard Deviation 55.1 fL (35.1-46.3)
[2025-02-16 03:56] LABS: Anion Gap 10.0 mmol/L (3-11); Blood Urea Nitrogen 46.0 mg/dL (8-24); CO2, Blood 22.0 mmol/L (21-32); Calcium, Blood 8.7 mg/dL (8.5-10.1); Chloride, Blood 107.0 mmol/L (98-108); Creatinine, Blood 2.66 mg/dL (0.40-1.00); Glucose, Blood 76.0 mg/dL (70-99); Potassium, Blood 4.9 mmol/L (3.5-5.5); Sodium, Blood 134.0 mmol/L (136-145)
[2025-02-16] MEDS ORDERED: Polyethylene Glycol 3350 17 gm PO PRN (08:30)
[2025-02-16] MEDS ORDERED: Magnesium Hydroxide Conc 10 ML UDC PO PRN (08:30)
--- NOTE | 2025-02-16 15:24 | NUR ---
SHIFT SUMMARY NEURO: ALERT AND ORIENTED X4, ABLE TO MAKE HER NEEDS KNOWN AND CALLS APPROPRIATELY. WEARS GLASSES. MOVES ALL HER EXTREMITIES WELL. AFEBRILE CARDIAC: SR OCCASIONALLY A PACED. QT PROLONGED THIS AFTERNOON IN 500S. PT HAS NOT RECIEVED ZOFRAN TODAY. HYPOTENSION THIS AM SBP 80-90S. THIS AFTERNOON PT SBP 100-120S POST DIURESIS AND MIDODRINE. HR 70-80S UP TO 100S WITH ACTIVITY. DENIES ANY CHEST PAIN. SOME MILD DIZZINESS WITH QUICK POSITION CHANGES- NOT NEW, SHE REPORTS THIS IS HER BASELINE. CHANGES POSITION SLOWLY AND TAKES FREQUENT BREAKS WITH ADLS PRN. +FATIGUE, WHICH IS ALSO BASELINE. PULM: LUNGS CLEAR TO AUSCULTAION ON RA WHILE AWAKE. USING 2LPM AWHILE SLEEPING OTHERWISE DESATS SPO2 AROUND 87%. DENIES COUGH, NO WHEEZING. +DYSPNEA WITH ACTIVITY AND ORTHOPNEA. GI: ABDOMEN IS MILDLY DISTENDED. SOFT/NON TENDER. HYPOACTIVE BOWEL TONES. LAST BM: 02/13/25. 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 DENIES ANY NAUSEA TODAY. APPETITE STILL DECREASED SHE STATES : INCREASE IN UOP TODAY. URINE CLEAR/YELLOW. CONTIENT OF URINE. SHOWER TODAY TOLERATED WELL. SKIN INTACT. FAMILY INTO VISIT TODAY SISTERS AND HER SON TONY. 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 SEE SPECIALTY PROVIDERS IN [place] AND [place] AND AGREEABLE TO EITHER LOCATION.
[2025-02-16 15:33] LABS: Albumin, Blood 3.1 g/dL (3.4-5.0); Anion Gap 12 mmol/L (3-11); Blood Urea Nitrogen 42 mg/dL (8-24); CO2, Blood 21 mmol/L (21-32); Calcium, Blood 9.1 mg/dL (8.5-10.1); Chloride, Blood 104 mmol/L (98-108); Creatinine, Blood 2.37 mg/dL (0.40-1.00); Glucose, Blood 92 mg/dL (70-99); Phosphorus, Blood 2.9 mg/dL (2.5-4.9); Potassium, Blood 4.0 mmol/L (3.5-5.5); Sodium, Blood 133 mmol/L (136-145)
--- NOTE | 2025-02-16 17:45 | NUR ---
PT TRANSFER TO PCU 15 REPORT GIVEN
[2025-02-17] VITALS (9 sets, daily range): BP systolic 81–115; BP diastolic 56–74
[2025-02-17 04:27] LABS: Anion Gap 10.0 mmol/L (3-11); Blood Urea Nitrogen 41.0 mg/dL (8-24); CO2, Blood 24.0 mmol/L (21-32); Calcium, Blood 8.5 mg/dL (8.5-10.1); Chloride, Blood 106.0 mmol/L (98-108); Creatinine, Blood 2.04 mg/dL (0.40-1.00); Glucose, Blood 74.0 mg/dL (70-99); Potassium, Blood 4.9 mmol/L (3.5-5.5); Sodium, Blood 135.0 mmol/L (136-145)
--- NOTE | 2025-02-17 06:44 | NUR ---
SHIFT SUMMARY: PT IS A&OX4, PLEASANT AND COOPERATIVE WITH CARE. SOFT BP, MAP REMAINS >65. ON RA, 2L O2 VIA NC WHILE ASLEEP. HR SR 80'S-90'S, MOSTLY PACED IN THE 60'S. DENIES PAIN. PT TOLERATING A REGULAR DIET. COMPLIANT WITH 2L FLUID RESTRICTION. EDUCATED PT ON THE IMPORTANCE OF TOBACCO CESSATION, PT VERY RECEPTIVE. INDEPENDENT TO BR. VOIDING LARGE AMOUNTS OF CLEAR, YELLOW URINE. NO BM THIS SHIFT. BED IN LOWEST POSITION, CALL LIGHT WITHIN REACH. CALLS APPROPRIATELY AND IS ABLE TO ADVOCATE NEEDS EFFECTIVELY.
[2025-02-17] MEDS ORDERED: SEMAGLUTIDE 0.25 MG SC SCH (12:00)
--- NOTE | 2025-02-17 12:10 | NUR ---
MORNING SUMMARY THE PT IS A&oX4, CALLS APPROPRAITELY, IND IN THE ROOM. THE PT STATES THAT SHE FEELS " ALOT BETTER, ITS LIKE NIGHT OR DAY". THIS RN AMBULATED WITH THE PT AROUND THE UNIT AND THEN THE PT TOOK A SHOWER IND IN THE ROOM. ON TELE THE PT WAS SR/PAC 90'S-100'S. TELE NOW D/C'D. BP HAS BEEN STABLE T/O THE DAY. SHE HAS REMAINS ON RA W/ SP02 >93% AND SHE DENIES ANY SOB. THE PT DOES STATE SHE HAS FAINT ABD DISCOMOFRT, BUT THAT IT IS NOT BOTHERING HER AT ALL. ONE EPISODE OF NAUSEA POST AMBULATION AND SHOWER, AND IT RESOLVED ON ITS OWN. NO ACUTE EVENTS THIS MORNING. THE PT WILL BE TRANSFERED TO ROOM 336 AFTER SHE IS FINISHED EATING LUNCH. DR. CLARK AND DR. OCONNOR STATED THAT THE PT WILL LIKELY BE DISCHARGE WITHIN THE NEXT DAY OR TWO IF THE PT'S KIDNEY FUNCTION CONTINUES TO IMPROVE. SHE IS BEING RESTARTED ON HER [place], BUT IS WAITING FOR FAMILY TO BRING IT IN TO BE VERFIED AT PHARMACY. SEE NOTES FOR UPDATES.
--- NOTE | 2025-02-17 18:18 | NUR ---
ASSUMPTION OF CARE: PATIENT ARRIVES TO ROOM AT 1322 FROM PCU 15. PATIENT HAS HAD NO CHANGES SINCE ARRIVED TO ROOM. PATIENT STILL HYPOTENSIVE c SBP IN HIGH 80'S TO LOW 90'S, DESPITE c MEDODRINE SCHEDULED. PATIENT SCHEDULED IV LASIX WAS NOT GIVEN D/T HYPOTENSION. DR. OCONNOR WAS NOTIFIED c THIS CONCERN, NO NEW ORDERS AT THIS TIME. PATIENT DENIES CP/PRESSURE, SOB, N/V AND DIZZINESS. PATIENT ON 2L FR, MOD APPETITE, CONTINENT OF BLADDER AND AMBULATES TO BATHROOM c SBA. BED IN LOWEST POSITION. CALL LIGHT IN REACH.
--- NOTE | 2025-02-17 19:13 | NUR ---
DAY SHIFT ADDITIONAL NOTE: PATIENT HYPOTENSIVE, BUT STABLE BASE ON (MAP 68-74).
[2025-02-17] MEDS ORDERED: Miconazole Nitrate 2% 85 GM PWD TOP SCH (21:00)
[2025-02-17 22:54] LABS: Anion Gap 9.0 mmol/L (3-11); Blood Urea Nitrogen 43.0 mg/dL (8-24); CO2, Blood 26.0 mmol/L (21-32); Calcium, Blood 8.9 mg/dL (8.5-10.1); Chloride, Blood 105.0 mmol/L (98-108); Creatinine, Blood 1.98 mg/dL (0.40-1.00); Glucose, Blood 84.0 mg/dL (70-99); Potassium, Blood 4.6 mmol/L (3.5-5.5); Sodium, Blood 135.0 mmol/L (136-145)
[2025-02-18 02:22] VITALS: BP 82/57
--- NOTE | 2025-02-18 06:11 | NUR ---
SHIFT SUMMARY PT SLEPT INTERMITTENTLY DURING THE NIGHT. BLOOD PRESSURE SOFT, BUT MAP ABOVE 60. PT ASYMPTOMATIC WITH BLOOD PRESSURE. UP INDEPENDENTLY IN ROOM. PT C/O CONSTIPATION AND MEDICATED WITH MOM RESULTING IN +BM STATED BY PT. 2L NC PLACED AT HS FOR SLEEP APNEA. BED IN LOWEST POSITION, CALL LIGHT WITHIN REACH, SIDERAILS UP X2.
[2025-02-18 07:45] VITALS: BP 89/60
[2025-02-18 07:53] LABS: Anion Gap 8.0 mmol/L (3-11); Blood Urea Nitrogen 38.0 mg/dL (8-24); CO2, Blood 22.0 mmol/L (21-32); Calcium, Blood 9.0 mg/dL (8.5-10.1); Chloride, Blood 107.0 mmol/L (98-108); Creatinine, Blood 1.7 mg/dL (0.40-1.00); Glucose, Blood 79.0 mg/dL (70-99); Potassium, Blood 4.9 mmol/L (3.5-5.5); Sodium, Blood 132.0 mmol/L (136-145)
--- NOTE | 2025-02-18 09:00 | NUR ---
pt resting in bed, awake a/ox4, pleasant and cooperative with care, follows commands well, denies pain at this time, lungs are clear in upper duran, a bit dim in bases, on r/a sats are 97%, no cough noted or reported, hrr, has icd in lcw, no edema noted, ppp+1, cap refill<3 sec, vs stable, afebrile, piv to lhand, site is clear and patent, btx4, abd round soft nontender, reports bm last night, which was loose, voids without diff, skin c/w/d, except yeast rash under panus, skin c/w/d, maew, greg, call light in reach.
[2025-02-18 17:55] VITALS: BP 90/68
--- NOTE | 2025-02-18 19:12 | NUR ---
pt was able to have a shower today, rested in bed the rest of the day, b/p remains in the high 80's to 90's, no acute changes this shift. call light in reach.
--- NOTE | 2025-02-19 03:27 | NUR ---
SHIFT SUMMARY PATIENT A/O X4, RESTED WELL. SLEEP STUDY IN PROGRESS. ON 2L NC AT NOC, 02 SATURATIONS ABOVE 95%. NO COMPLAINTS OF PAIN. IND IN THE ROOM. BLOOD PRESSURE CONTINUES TO BE SOFT, SYSTOLIC ABOVE 90. NO ACUTE EVENTS THROUGHOUT SHIFT. CALL LIGHT IN REACH, BED IN LOWEST POSITION. WILL REPORT TO ONCOMING RN.
[2025-02-19 05:26] VITALS: BP 123/84
[2025-02-19 07:57] VITALS: BP 97/72
[2025-02-19 12:01] LABS: Anion Gap 15.0 mmol/L (3-11); Blood Urea Nitrogen 33.0 mg/dL (8-24); CO2, Blood 26.0 mmol/L (21-32); Calcium, Blood 9.9 mg/dL (8.5-10.1); Chloride, Blood 103.0 mmol/L (98-108); Creatinine, Blood 1.74 mg/dL (0.40-1.00); Glucose, Blood 82.0 mg/dL (70-99); Potassium, Blood 4.8 mmol/L (3.5-5.5); Sodium, Blood 139.0 mmol/L (136-145)
[2025-02-19 13:46] VITALS: BP 95/62
[2025-02-19 16:57] VITALS: BP 110/74
--- NOTE | 2025-02-19 18:03 | NUR ---
SHIFT SUMMARY: PATIENT A+O X4 THROUGHOUT THIS SHIFT. COOPERATIVE c NURSING CARE AND SEEMS TO BE IN GOOD SPIRITS. PLAN FOR POSSIBLE DISCHARGE TOMORROW. NO NEW OR ACUTE CHANGES. PLAN OF CARE ONGOING AT THIS TIME, WILL CONTINUE TO MONITOR.
[2025-02-19 19:13] VITALS: BP 103/68
[2025-02-19 23:54] VITALS: BP 115/76
[2025-02-20 04:30] VITALS: BP 113/71
--- NOTE | 2025-02-20 04:50 | NUR ---
SHIFT SUMMARY PT A/O X4, PLEASANT AND COOPERATIVE WITH CARE. VITAL SIGNS REMAINED STABLE THROUGHOUT THE NIGHT WITH NO REPORT OF SOB, CHEST PAIN OR PRESSURE. PT IND IN THE ROOM, UP TO THE BATHROOM AND VOIDING WELL. NO REPORT OF N/V. NO ACUTE CHANGES THROUGHOUT THE SHIFT. PLAN FOR DC TODAY PER PROVIDER NOTE. CALL LIGHT IN REACH, BED IN LOWEST POSITION. WILL REPORT TO ONCOMING RN.
[2025-02-20 07:25] LABS: Anion Gap 11.0 mmol/L (3-11); Blood Urea Nitrogen 29.0 mg/dL (8-24); CO2, Blood 24.0 mmol/L (21-32); Calcium, Blood 9.1 mg/dL (8.5-10.1); Chloride, Blood 103.0 mmol/L (98-108); Creatinine, Blood 1.96 mg/dL (0.40-1.00); Glucose, Blood 111.0 mg/dL (70-99); Potassium, Blood 4.0 mmol/L (3.5-5.5); Sodium, Blood 134.0 mmol/L (136-145)
[2025-02-20 07:54] VITALS: BP 101/67
[2025-02-20] MEDS ORDERED: LOSA25 PO (11:36)
[2025-02-20] MEDS ORDERED: MIDO5 PO (11:37)
--- NOTE | 2025-02-20 13:48 | NUR ---
PT DISCHARGED HOME WITH HOME HEALTH. DISCUSSED DISCHARGE INSTRUCTIONS WITH PT, INCLUDING CHANGES TO MEDICATIONS. NO QUESTIONS OR CONCERNS AT TIME OF DISCHARGE.
== END 2025-02-20 12:20 | disposition home health service (06) | DRG 312 ==
LOC: ER 15:14 → ICUE 15:15 → ERHOLD 15:15 → ICUE 22:30 → MEDS 02-14 15:12 → ICUE 02-14 15:13 → PCU 02-16 17:47 → MEDS 02-17 13:22
PROVIDERS: Nurse Practitioner Acute Care; Student in an Organized Health Care Education/Training Program; ADMIT Internal Medicine
DX: I95.2 Hypotension due to drugs (principal); N17.9 Acute kidney failure, unspecified; I13.0 Hypertensive heart and chronic kidney disease with heart failure and stage 1 through stage 4 chronic kidney disease, or unspecified chronic kidney disease; I50.22 Chronic systolic (congestive) heart failure; R18.8 Other ascites; N18.31 Chronic kidney disease, stage 3a; M25.511 Pain in right shoulder; E66.9 Obesity, unspecified; D72.829 Elevated white blood cell count, unspecified; I25.10 Atherosclerotic heart disease of native coronary artery without angina pectoris; K21.9 Gastro-esophageal reflux disease without esophagitis; N83.291 Other ovarian cyst, right side; T50.2X5A Adverse effect of carbonic-anhydrase inhibitors, benzothiadiazides and other diuretics, initial encounter; F32.A Depression, unspecified; R07.89 Other chest pain; K74.69 Other cirrhosis of liver; Z86.718 Personal history of other venous thrombosis and embolism; Z88.1 Allergy status to other antibiotic agents; Z88.8 Allergy status to other drugs, medicaments and biological substances; Z86.19 Personal history of other infectious and parasitic diseases; Z90.710 Acquired absence of both cervix and uterus; Z79.52 Long term (current) use of systemic steroids; Z79.82 Long term (current) use of aspirin; Z79.84 Long term (current) use of oral hypoglycemic drugs; I25.2 Old myocardial infarction; Z95.5 Presence of coronary angioplasty implant and graft; Z95.810 Presence of automatic (implantable) cardiac defibrillator; Z87.891 Personal history of nicotine dependence; Z68.37 Body mass index [BMI] 37.0-37.9, adult; Z79.01 Long term (current) use of anticoagulants
CPT/HCPCS: 36415; 71046; 74177; 76857; 80048; 80053; 80069; 81001; 82330; 82533; 83605; 83690; 83880; 84443; 84484; 85025; 85027; 85610; 86850; 86900; 86901; 87040; 87086; 93005; 93010; 94762; 96361; 96365; 96366; 96372; 96374; 96375; 96376; 99285-25; A9270; C8929; G0378; J0612; J1644; J1938; J2405; J3010; J7030; Q9957; Q9967